=== PATIENT | female | born 1970 | race Caucasian/White ===

== ENCOUNTER 2018-08-17 02:47 | Emergency (ER) | payer BC ==
[2018-08-17 03:13] LABS: Bacteria/HPF 2+ HPF (None Seen); Bilirubin Negative (Negative); Blood, Urine Negative (Negative); Clarity Turbid (Clear); Glucose, Urine (Dipstick) Negative (Negative); Leukocyte Small (Negative); Nitrite Negative (Negative); Protein, Urine (Dipstick) Negative (Neg-Trace); RBC/HPF None Seen HPF (0-3); Urobilinogen 0.2 mg/dL (0.2-1.0); WBC/HPF 0-3 HPF (0-3)
[2018-08-17 03:14] LABS: Crystals/HPF 2+ AMORPH PHOS HPF (Negative); Hyaline Casts/LPF NONE SEEN LPF (0-3 Hyaline)
[2018-08-17] MEDS ORDERED: Ketorolac Tromethamine 30 MG/ML VIAL ONE (03:20)
[2018-08-17] MEDS ORDERED: Ondansetron PF 4 MG/2 ML Vial ONE (03:20)
[2018-08-17 03:27] LABS: #Basophils 0.2 thou/uL (0.0-0.2); #Eosinphils 0.4 thou/uL (0.0-0.7); #Lymphocytes 1.7 thou/uL (1.20-3.40); #Monocytes 0.8 thou/uL (0.11-0.59); #Neutrophils 9.2 thou/uL (1.40-6.50); %Basophils 1.3 % (0.0-1.0); %Eosinophils 3.5 % (0.0-10.0); %Lymphocytes 13.5 % (21.0-51.0); %Monocytes 6.6 % (0.0-10.0); %Neutrophils 75.1 % (42.0-75.0); Hemoglobin 13.9 g/dL (12.0-16.0); Mean Corpuscular HGB CONC 33.5 g/dL (32.0-36.0); Mean Corpuscular Hemoglobin 30.3 pg (27.0-31.0); Mean Corpuscular Volume 90.5 fL (78.0-98.0); Mean Platelet Volume 7.9 fL (7.4-10.4); Platelet Count 202 thou/uL (130-400); RBC Distribution Width 12.3 % (11.5-14.5); Red Blood Cell (RBC) Count 4.58 mill/uL (4.20-5.40); White Blood Cell (WBC) Count 12.2 thou/uL (4.8-10.8)
[2018-08-17 03:37] LABS: Pregnancy Test - Urine (BHCG) Negative (Negative); Pregu Control Background? CLEAR/WHITE (CLR/WHITE); Pregu Control Bar Appear? YES (CONTROL BAR)
[2018-08-17 03:40] LABS: ALT (SGPT) 122 U/L (8-55); AST (SGOT) 131 U/L (5-34); Albumin 4.5 g/dL (3.5-5.0); Alkaline Phosphatase 81 U/L (40-150); Anion Gap 15 mmol/L (10-20); BUN (Urea Nitrogen) 22 mg/dL (7.0-18.7); Calc. Creatinine Clearance 0 mL/min (70-130); Calcium 10.1 mg/dL (7.8-10.44); Carbon Dioxide 25 mmol/L (22-29); Chloride 102 mmol/L (98-107); Estimated GFR-MDRD 80; Globulin 2.8 g/dL (2.4-3.5); Glucose 131 mg/dL (70-105); Lipase 8 U/L (8-78); Protein, Total 7.3 g/dL (6.0-8.3); Sodium 138 mmol/L (136-145)
--- NOTE | 2018-08-17 06:50 | CT ---
CT ABDOMEN AND PELVIS WITH IV CONTRAST: INDICATIONS: Left lower quadrant abdominal pain since last night. COMPARISON: None. FINDINGS: There is sub-4 mm pulmonary nodule within the right lower lobe. There is a small hiatal hernia. No focal hepatic lesion is evident. There are numerous gallstones within a mildly dilated gallbladder w ith mild gallbladder wall thickening. The adrenal glands, pancreas, and spleen appear within normal limits. The kidneys are normal appearing. No free fluid is evident. There is nonvisualization of t he appendix; however, there are no secondary signs of appendicitis. There are suspected bilateral ov jarred follicles. There is a suspected 1 cm involuting follicle within the left adnexa. The bladder, rectum, and perirectal soft tissues are unremarkable appearing. There is scattered degenerative and osteoarthritic change. No definite acute osseous abnormality is evident. IMPRESSION: 1. Cholelithiasis with mild gallbladder distention and gallbladder wall thickening, suspicious for p ossible acute cholecystitis. Recommend right upper quadrant ultrasound for further evaluation. 2. Mild amount of retained stool within the colon. 3. Nonvisualization of the appendix. There are no secondary signs of appendicitis. 4. Suspected involuting follicle of the left adnexa. No free fluid is evident within the pelvis or abdomen. POS: [facility]
[2018-08-17] MEDS ORDERED: Iopamidol 370 76% 100 ML VIAL ONE (09:00)
== END 2018-08-17 05:00 | disposition home or self-care (01) ==
LOC: SCSER 02:47
DX: K80.20 Calculus of gallbladder without cholecystitis without obstruction (principal); Z79.52 Long term (current) use of systemic steroids
CPT/HCPCS: 74177; 80053; 81003; 81015; 81025; 83690; 85025; 96361; 96374; 96375; J1885; J2405; Q9967